=== PATIENT | male | born 1980 | race Asian ===

== ENCOUNTER 2018-07-09 13:27 | Emergency (ER) | payer BC ==
[~2018-07-09] VITALS: Ht 177.8 cm; Wt 77.3 kg
[2018-07-09 13:30] VITALS: BP 126/71
[2018-07-09] MEDS ORDERED: LIDOCAINE-MPF 1%, 5ML ONE ×2 (13:50→14:33)
[2018-07-09] MEDS ORDERED: DIPH,PERTUSS(ACELL),TET VAC/PF 0.5 ML IM-VACC ONE ×2 (13:50→14:00)
[2018-07-09] MEDS ORDERED: LIDOCAINE-MPF 1%, 5ML INFIL ONE (14:00)
[2018-07-09] MEDS ORDERED: BACITRACIN ZINC OINT 500U/GM, 0.9 GM ONE (15:00)
== END 2018-07-09 15:36 | disposition home or self-care (01) ==
LOC: ED 14:28
DX: S61.213A Laceration without foreign body of left middle finger without damage to nail, initial encounter (principal); Z87.891 Personal history of nicotine dependence; W31.9XXA Contact with unspecified machinery, initial encounter; Y93.89 Activity, other specified; Y92.69 Other specified industrial and construction area as the place of occurrence of the external cause; Y99.0 Civilian activity done for income or pay
CPT/HCPCS: 12001; 90471; 90715; 99283

== ENCOUNTER 2020-04-20 13:28 | Emergency (ER) | payer BC ==
[~2020-04-20] VITALS: Ht 177.8 cm; Wt 84.4 kg
[2020-04-20 13:35] VITALS: BP 114/82
== END 2020-04-20 14:20 | disposition home or self-care (01) ==
LOC: ED 14:02
DX: R10.32 Left lower quadrant pain (principal)
CPT/HCPCS: 99281